=== PATIENT | male | born 1965 | race Caucasian/White ===

== ENCOUNTER 2020-01-29 08:23 | Emergency (ER) | payer MEDICARE ==
[~2020-01-29] VITALS: Ht 172.7 cm; Wt 92.5 kg
--- NOTE | 2020-01-29 09:13 | NUR ---
CATEGORY DIRECTOR: PT TO ROOM FROM LOBBY
--- NOTE | 2020-01-29 09:17 | NUR ---
ROD PATTERSON BS FOR EXAM. PT A&OX4, RESP EVEN & UNLABORED, SPEECH CLEAR. 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 HEAD HIT THE FLOOR. C/O TENDERNESS TO LT TEMPAL AREA. ECCHYMOSIS TO BILAT LOWER ORBITAL AREAS. DENIES VISION CHANGES. C/O SWOLLEN GLANDS IN THROAT, DENIES SORE THROAT. TOOK ADVIL 600MG AT 0645.
[2020-01-29] MEDS ORDERED: CETI10TA26 PO (09:30)
[2020-01-29] MEDS ORDERED: UNKOWN (09:30)
[2020-01-29] MEDS ORDERED: ESCI20TA PO (09:30)
[2020-01-29] MEDS ORDERED: ACYC-114 PO (09:30)
[2020-01-29] MEDS ORDERED: GABA600T7 PO (09:30)
[2020-01-29 09:32] VITALS: BP 112/72
--- NOTE | 2020-01-29 10:32 | NUR ---
PT FULLY DRESSED; AMBULATORY TO & FROM [facility] W/OUT INCIDENT; GAIT STEADY.
== END 2020-01-29 10:55 | disposition home or self-care (01) ==
LOC: ED 10:16
DX: S05.12XA Contusion of eyeball and orbital tissues, left eye, initial encounter (principal); S05.11XA Contusion of eyeball and orbital tissues, right eye, initial encounter; S09.90XA Unspecified injury of head, initial encounter; W18.30XA Fall on same level, unspecified, initial encounter; Y93.89 Activity, other specified; Y92.009 Unspecified place in unspecified non-institutional (private) residence as the place of occurrence of the external cause; Y99.8 Other external cause status
CPT/HCPCS: 70450; 70486; 99285

== ENCOUNTER 2020-08-23 14:20 | Emergency (ER) | payer MEDICARE ==
[~2020-08-23] VITALS: Ht 175.3 cm; Wt 92.2 kg
[~2020-08-23 14:20] MED LIST: ACYC-114 PO; CETI10TA76 PO; ESCI20TA5 PO; GABA600T7 PO; UNKOWN
[2020-08-23 14:38] VITALS: BP 121/82
[2020-08-23] MEDS ORDERED: NEOSPORIN OINT. PKT 1 PACKET ONE (15:40)
--- NOTE | 2020-08-23 15:54 | NUR ---
AFTER LEFT HAND WOUND CLEANED AND DRESSED, PT GIVEN DISCHARGE AND AMBULATED TO DISCHARGE WINDOW
== END 2020-08-23 15:55 | disposition home or self-care (01) ==
LOC: ED 15:45
DX: T23.202A Burn of second degree of left hand, unspecified site, initial encounter (principal); M79.642 Pain in left hand; T31.0 Burns involving less than 10% of body surface
CPT/HCPCS: 99282